=== PATIENT | female | born 1965 | race African-American/Black ===

== ENCOUNTER 2021-02-15 14:40 | Emergency (ER) | payer OTHER ==
[~2021-02-15] VITALS: Ht 157.5 cm; Wt 54.4 kg
[2021-02-15 15:50] VITALS: BP 144/91
[2021-02-15] MEDS ORDERED: KETOROLAC TROMETH 60MG/2ML VIAL IM ONE (16:45)
== END 2021-02-15 17:10 | disposition home or self-care (01) ==
LOC: EDBD → ER 14:40
DX: K02.9 Dental caries, unspecified (principal); G44.209 Tension-type headache, unspecified, not intractable; I10 Essential (primary) hypertension; Z86.73 Personal history of transient ischemic attack (TIA), and cerebral infarction without residual deficits; Z90.89 Acquired absence of other organs; Z88.0 Allergy status to penicillin; Z88.8 Allergy status to other drugs, medicaments and biological substances; Z88.5 Allergy status to narcotic agent; Z91.040 Latex allergy status
CPT/HCPCS: 70450; 96372; 99284; J1885

== ENCOUNTER 2025-02-04 19:48 | Emergency (ER) | payer OTHER ==
[~2025-02-04] VITALS: Ht 157.5 cm; Wt 54.0 kg
[2025-02-04 19:49] VITALS: BP 127/93; PULSE 90; RESP 13; TEMP 97.7; O2SAT 98
--- NOTE | 2025-02-04 20:07 | ED.PDOC ---
Mult. trauma (HPI) HPI Comments Pt arrived in ER due to splinter in 3rd digit left finger. VSS. Pt in 12/26 pain. Unable to visualize splinter. Finger red and with minor swelling. Chief Complaint: Upper Extremity Time Seen by MD: 19:56 Primary Care Provider: MARK AMARO Allergies: Coded Allergies: Iodine (Verified Allergy, Unknown, 02/05/14) Latex (Verified Allergy, Unknown, 02/05/14) Nylon (Verified Allergy, Unknown, 02/05/14) Penicillins (Verified Allergy, Unknown, 02/05/14) Hydromorphone (Verified Adverse Reaction, Mild, ITCHING, 02/07/14) PER ADMIN REPORT 02/06 AT 0508, "PT C/O ITCHING AFTER RECEIVING DILAUDID" BY MORIAH TORRES RN Home Meds Active Scripts Amoxicillin & Pot Clavulanate (AUGMENTIN TABLET) 875 Mg Tb, 875 MG PO BID for 5 Days, #10 TAB Prov:REY OWENS [employer] 02/04/25 Information Source: Patient Mode of Arrival: Ambulatory Past Medical History PAST MEDICAL HISTORY: CVA, HTN, Thyroid Surgical History: , Thyroidectomy, Tubal Ligation 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 History Family History Family History: Reviewed,noncontributory to illness Social History Smoker: Non-Smoker Alcohol: Denies ETOH Use Drugs: Denies Drug Use Lives In: Home Constitutional: denies: chills, diaphoresis, fatigue, fever, malaise, sweats, weakness, others EENTM: denies: blurred vision, double vision, ear bleeding, ear discharge, ear drainage, ear pain, ear ringing, eye pain, eye redness, hearing loss, mouth pain, mouth swelling, nasal discharge, nose bleeding, nose congestion, nose pain, photophobia, tearing, throat pain, throat swelling, voice changes, others Respiratory: denies: cough, hemoptysis, orthopnea, SOB at rest, shortness of breath, SOB with excertion, stridor, wheezing, others Cardiovascular: denies: chest pain, dizzy spells, diaphoresis, Dyspnea on e xertion, edema, irregular heart beat, left arm pain, lightheadedness, palpitations, PND, syncope, others Gastrointestinal: denies: abdomen distended, abdominal pain, blood streaked bowels, constipated, diarrhea, dysphagia, difficulty swallowing, hematemesis, melena, nausea, poor appetite, poor fluid intake, rectal bleeding, rectal pain, vomiting, others Genitourinary: denies: abnormal vagina bleeding, burning, dyspareunia, dysuria, flank pain, frequency, hematuria, incontinence, pain, , vagina discharge, urgency, others Neurological: denies: dizziness, fainting, headache, left sided numbness, left sided weakness, numbness, paresthesia, pre-existing deficit, right sided numbness, right sided weakness, seizure, speech problems, tingling, tremors, weakness, others Musculoskeletal: denies: back pain, gout, joint pain, joint swelling, muscle pain, muscle stiffness, neck pain, others Integumetry: reports: wounds (LEFT MIDDLE FINGER); denies: bruises, change in color, change in hair/nails, dryness, laceration, lesions, lumps, rash, others Allergic/Immunocompromised: denies: Difficulty Healing, Frequent Infections, Hives, Itching, others Hematologic/Lymphatic: denies: anemia, blood clots, easy bleeding, easy bruis ing, swollen glands, others Endocrine: denies: excessive hunger, excessive sweating, excessive thirst, exc essive urination, flushing, intolerance to cold, intolerance to heat, unexplained weight gain, unexplained weight loss, others Psychiatric: denies: anxiety, bipolar disorder, depression, hopeless, panic disorder, schizophrenia, sleepless, suicidal, others Physical Exam General Appearance: No Apparent Distress, Normal HEENT: Pharynx Normal Neck: Full Range of Motion, Non-Tender Respiratory: Lungs Clear, No Respiratory Distress, Normal Breath Sounds Cardiovascular: No Murmur, Normal Peripheral Pulses, Regular Rate/Rhythm Breast Exam: Deferred Gastrointestinal: Non Tender, Soft Genitalia: Deferred Pelvic: Deferred Rectal: Deferred Extremities: Normal capillary refill, Normal inspection, Normal range of motion, Non-tender, No pedal edema Musculoskeletal : Apperance: Normal Neurologic: Alert, No Motor Deficits, Normal Affect, Normal Mood, No Sensory Deficits Cerebellar Function: Normal Reflexes: Normal Skin: Dry, Normal Color, Warm, Wounds (LEFT HAND 3RD DIGIT DISTAL ASPECT NOTED PUNCTURE WOUND TRACE EDEMA NO NOTED OBVIOUS FOREIGN BODY FELT OR VISUALIZED STRENGTH SENSORY MOTION INTACT CAP REFILL LESS THAN 3 SECONDS) Lymphatic: No Adenopathy Was a procedure done? Was a procedure done?: Yes Sedation Sedation?: No Informed consent obtained: Yes Foreign Body Removal Foreign body in: Skin Anesthetic: Lidocaine, Without Epi Prep: Saline, Irrigation Procedure: Not Identified Informed consent obtained: Yes Risks/benefits/alt described: Yes Notes NO NOTED FOREIGN BODY PATIENT TOLERATED WELL MINIMAL BLOOD LOSS Differential Diagnosis Multiple Trauma: Foreign Body, Hematoma X-Ray, Labs, Meds, VS Vital Signs Date Time Temp Pulse Resp B/P (MAP) Pulse Ox O2 Delivery O2 Flow Rate FiO2 02/04/25 19:49 97.7 90 13 127/93 (104) 98 97.7 X-Ray, Labs, Meds, VS Comment LEFT HAND MIDDLE FINGER SHOWS NO ACUTE FRACTURES OSSEOUS LESIONS SUBLUXATIONS DISLOCATIONS OR FOREIGN. SEE PROCEDURE NOTE. SCRIPT TRIAL OF PROPHYLACTIC ANTIBIOTICS ADVISED PATIENT TO TAKE MEDICATION PRESCRIBED SIDE EFFECTS DISCUSSED. NO NOTED FOREIGN BODY ON X-RAY NOR ON VISUAL AND EXPLORATORY EXAM. ADVISED TO HAVE WOUND RECHECKED IN 2 DAYS ER RETURN PRECAUTIONS GIVEN PATIENT INDICATES UNDERSTANDING AND AGREES WITH DISCHARGE PLAN OF CARE. Time of 1ST Reevaluation: 20:07 Reevaluation 1ST: Unchanged Time of 2ND Reevaluation: 21:53 Reevaluation 2ND: Improved Patient Education/Counseling: Diagnosis, Treatment, Prognosis, Need For Follow Up Family Education/Counseling: No Family Present Departure 1 Departure Time of Disposition: 21:53 Impression: Primary Impression: Splinter of finger Disposition: 01 HOME / SELF CARE / HOMELESS Condition: Stable e-Prescriptions Amoxicillin & Pot Clavulanate (AUGMENTIN TABLET) 875 Mg Tb 875 MG PO BID for 5 Days, #10 TAB Prov: REY OWENS 02/04/25 Discharged With: Self Critical Care Note Critical Care Time?: No Stability Stability form required: No REY OWENS Feb 04, 2025 20:07
--- NOTE | 2025-02-04 21:35 | DVH ---
LEFT HAND RADIOGRAPHS CLINICAL HISTORY: poss fb 3rd digit distal aspect TECHNIQUE: Three views of the left hand were obtained. COMPARISON: None FINDINGS/IMPRESSION: No acute displaced fracture. No radiopaque foreign body is seen. The joint spaces appear maintained .
[2025-02-04] MEDS ORDERED: AUG875T PO (21:54)
== END 2025-02-04 21:57 | disposition home or self-care (01) ==
LOC: ER 19:48
DX: S60.453A Superficial foreign body of left middle finger, initial encounter (principal); E03.9 Hypothyroidism, unspecified; I10 Essential (primary) hypertension; Z86.73 Personal history of transient ischemic attack (TIA), and cerebral infarction without residual deficits; Z90.89 Acquired absence of other organs; Z98.51 Tubal ligation status; Z88.0 Allergy status to penicillin; Z88.5 Allergy status to narcotic agent; Z88.8 Allergy status to other drugs, medicaments and biological substances
CPT/HCPCS: 73130